=== PATIENT | female | born 1960 | race Caucasian/White ===

== ENCOUNTER 2016-12-12 18:11 | Inpatient (IN) | payer MEDICARE, MEDICAID ==
[2016-12-12 18:38] VITALS: RESP 20
[2016-12-12 20:55] LABS: BASO # 0.1 K/uL (0.0-0.2); BASO % 0.9 % (0.0-2.0); EOS # 0.1 K/uL (0.0-0.7); EOS % 1.3 % (0.0-4.0); HEMATOCRIT 33.9 % (34.0-47.0); LYMPH # 2.7 K/uL (1.0-4.3); LYMPH % 38.3 % (20.0-40.0); MEAN CELL VOLUME 92.3 fL (81.0-99.0); MEAN CORPUSCULAR HEMOGLOBIN 30.6 pg (27.0-31.0); MEAN CORPUSCULAR HGB CONC 33.1 g/dL (33.0-37.0); MEAN PLATELET VOLUME 9.4 fL (7.2-11.7); MONO # 0.7 K/uL (0.0-0.8); MONO % 9.7 % (0.0-10.0); RED CELL DISTRIBUTION WIDTH 14.6 % (11.5-14.5); WHITE BLOOD COUNT 6.9 K/uL (4.8-10.8)
[2016-12-12 21:04] LABS: CHLORIDE 98 mmol/L (98-107); SODIUM 136 mmol/L (132-148)
[2016-12-12 21:06] LABS: AST/SGOT 26 U/L (14-36); BILIRUBIN,TOTAL 0.6 mg/dL (0.2-1.3); CARBON DIOXIDE 28 mmol/L (22-30); GFR AFRICAN-AMERICAN > 60
[2016-12-12 21:07] LABS: ALB/GLOB RATIO 1.1 (1.0-2.1); ALKALINE PHOSPHATASE 55 U/L (38-126); ALT/SGPT 19 U/L (9-52); BLOOD UREA NITROGEN 13 mg/dL (7-17); CALCIUM 8.9 mg/dl (8.6-10.4); GLUCOSE,RANDOM 145 mg/dL (65-105); TOTAL PROTEIN 6.5 g/dL (6.3-8.3)
--- NOTE | 2016-12-12 21:07 | CT ---
EXAM: CT Head Without Intravenous Contrast CLINICAL HISTORY: 56 years old, female; Signs and symptoms; Weakness, extremity; Bilateral; Additional info: Frequent falls, weakness TECHNIQUE: Axial computed tomography images of the head/brain without intravenous contrast. This CT exam was performed using one or more of the following dose reduction techniques: automated exposure control, adjustment of the mA and/or kV according to patient size, and/or use of iterative reconstruction technique. COMPARISON: No relevant prior studies available. FINDINGS: Brain: [id number] atrophy. No intracranial hemorrhage. Small dural calcifications vs calcified meningiomas along anterior falx, LEFT middle cranial fossa. No definite edema. Ventricles: No hydrocephalus. Bones/joints: No acute fracture. Soft tissues: Unremarkable. Sinuses: No acute sinusitis. Mastoid air cells: No mastoid effusion. Orbits: Unremarkable as visualized. IMPRESSION: 1. No definite acute intracranial abnormality. Acute infarction may be CT occult within first 24 hours. If a focal deficit persists, consider followup CT or MRI for further evaluation. 2. Incidental/non-acute findings are described above.
[2016-12-12] MEDS ORDERED: Sodium Chloride 0.9% 1,000 ML IV STA (21:19)
[2016-12-12] MEDS ORDERED: Sodium Chloride 0.9% 1,000 ML ONE (21:37)
--- NOTE | 2016-12-12 21:50 | C.PDOC ---
History Of Present Illness Patient is a 56 year old female with a PMHx of schizophrenia, HTN, and DM who presents to the ER with son for a complaint of frequent falls for the past 6 months. Patient's son states she was seen at another hospital where she had a normal work up that was negative for abnormalities, however, patient's son states her symptoms continue and she has become weaker. Patient's son states a family friend spoke to Dr. Salvador Magallon who advised them to come to the ER and he will see them in ER. Patient is a poor historian, denies any other physical complaints. Time Seen by Provider: 12/12/16 19:57 Chief Complaint (Nursing): Medical Clearance History Per: Patient History/Exam Limitations: no limitations Onset/Duration Of Symptoms: Days (6 months), Intermittent Episodes Current Symptoms Are (Timing): Still Present Past Medical History Reviewed: Historical Data, Nursing Documentation, Vital Signs Vital Signs: Last Vital Signs Temp 97.3 F L 12/13/16 00:28 Pulse 107 H 12/13/16 00:28 Resp 20 12/13/16 00:28 BP 147/84 12/13/16 00:28 Pulse Ox 97 12/13/16 00:28 - Medical History PMH: Diabetes, Schizophrenia Surgical History: No Surg Hx Family History: States: Unknown Family Hx - Social History Hx Alcohol Use: No Hx Substance Use: No Review Of Systems Constitutional: Negative for: Fever, Chills Gastrointestinal: Negative for: Nausea, Vomiting, Diarrhea Neurological: Positive for: Weakness Physical Exam - Physical Exam Appears: Well, Non-toxic Skin: Normal Color, Warm, Dry Head: Atraumatic, Normacephalic Eye(s): bilateral: Normal Inspection, PERRL, EOMI Oral Mucosa: Moist Throat: Normal, Erythema Neck: Normal, Supple Chest: Symmetrical, No Tenderness Cardiovascular: Rhythm Regular, No Murmur Respiratory: Normal Breath Sounds, No Rales, No Rhonchi, No Wheezing Gastrointestinal/Abdominal: Soft, No Tenderness Back: Normal Inspection, No CVA Tenderness Extremity: Normal ROM, Other (Strength 4x ) Extremity: Bilateral: Atraumatic, Normal Color And Temperature Pulses: Left Radial: Normal, Right Radial: Normal, Left Dorsalis Pedis: Normal, Right Dorsalis Pedis: Normal Neurological/Psych: Oriented x3, Normal Speech, Normal Cognition, Normal Motor, Normal Sensation Gait: Unable To Assess (pt in stretcher) ED Course And Treatment - Laboratory Results Result Diagrams: 12/12/16 20:47 12/12/16 20:47 ECG: Interpreted By Me, Viewed By Me ECG Rhythm: Sinus Rhythm (Normal) ECG Interpretation: Normal Rate From EC O2 Sat by Pulse Oximetry: 98 (Room air) Pulse Ox Interpretation: Normal Progress Note: Urinalysis and EKG ordered. IV fluids administered. Discussed with Dr. Salvador Magallon, will admit to his service. Disposition - Disposition Disposition: HOSPITALIZED Disposition Time: 04:06 Condition: GOOD - Clinical Impression Clinical Impression: Weakness generalized - Scribe Statement The provider has reviewed the documentation as recorded by the Scribe Bhavesh Song All medical record entries made by the Toniaibe were at my direction and personally dictated by me. I have reviewed the chart and agree that the record accurately reflects my personal performance of the history, physical exam, medical decision making, and the department course for this patient. I have also personally directed, reviewed, and agree with the discharge instructions and disposition.
[2016-12-12 22:19] LABS: RBC URINE 1 /hpf (0-3); TRANSITIONAL EPITHIAL 1 /hpf (0-3); URINE BACTERIA OCC (<OCC); URINE BILIRUBIN NEGATIVE (NEGATIVE); URINE BLOOD NEGATIVE (NEGATIVE); URINE COLOR Yellow (YELLOW); URINE GLUCOSE (UA) 2+ mg/dL (Normal); URINE KETONE NEGATIVE (NEGATIVE); URINE LEUKOCYTE ESTERASE 2+ Leu/uL (Negative); URINE PROTEIN NEGATIVE (NEGATIVE); URINE UROBILINOGEN NORMAL mg/dL (0.2-1.0); WBC URINE 20 /hpf (0-5)
--- NOTE | 2016-12-13 09:50 | CP.PCM.HP ---
History of Present Illness - History of Present Illness History of Present Illness: 56 years old female patient with past medical history of schizophrenia diabetes , hypertension presented to the emergency department with her son complaining of frequent falls, weakness in the last 5 months. Patient had blood workup done at another hospital that was negative an event of abnormalities. Present on Admission - Present on Admission Any Indicators Present on Admission: No Past Patient History - Infectious Disease Hx of Infectious Diseases: None - Past Medical History & Family History Past Medical History?: Yes - Past Social History Smoking Status: Never Smoked - CARDIAC Hx Cardiac Disorders: No Hx Hypertension: No - PULMONARY Hx Tuberculosis: No - NEUROLOGICAL HX Cerebrovascular Accident: No Hx Seizures: No - RENAL Other/Comment: "kidney disease" - ENDOCRINE/METABOLIC Hx Diabetes Mellitus Type 2: Yes - HEMATOLOGICAL/ONCOLOGICAL Hx Cancer: No Hx Human Immunodeficiency Virus (HIV): No - MUSCULOSKELETAL/RHEUMATOLOGICAL Hx Falls: Yes (since August) Hx Unsteady Gait: Yes - GENITOURINARY/GYNECOLOGICAL Hx Sexually Transmitted Disorders: No Hx Urinary Tract Infection: Yes - PSYCHIATRIC Hx Schizophrenia: Yes Hx Substance Use: No - SURGICAL HISTORY Hx Surgeries: Yes Other/Comment: "Left leg" - ANESTHESIA Hx Anesthesia: No Hx Anesthesia Reactions: No Hx Malignant Hyperthermia: No Meds Home Medications: Home Medication List Medication Instructions Recorded Confirmed Type Acetaminophen [Tylenol 325mg tab] 650 mg PO STAT tab 12/16/16 Rx Bisacodyl [Dulcolax] 5 mg PO ONCE 12/16/16 Rx Ergocalciferol [Drisdol 50,000 1 cap PO Q7D cap 12/16/16 Rx Intl Units Cap] Gabapentin [Neurontin] 100 mg PO TID cap 12/16/16 Rx Insulin Human Regular [Novolin R] 0 unit SC ACHS unit 12/16/16 Rx Pantoprazole [Protonix EC Tab] 40 mg PO DAILY ect 12/16/16 Rx metFORMIN [glucOPHAGE] 500 mg PO BID tab 12/16/16 Rx Allergies/Adverse Reactions: Allergies Allergy/AdvReac Type Severity Reaction Status Date / Time No Known Allergies Allergy Verified 12/12/16 18:38 Physical Exam - Constitutional Appears: Well - Head Exam Head Exam: ATRAUMATIC, NORMAL INSPECTION, NORMOCEPHALIC - Eye Exam Eye Exam: EOMI, Normal appearance, PERRL Pupil Exam: NORMAL ACCOMODATION, PERRL - ENT Exam ENT Exam: Mucous Membranes Moist, Normal Exam - Neck Exam Neck exam: Positive for: Normal Inspection - Respiratory Exam Respiratory Exam: Decreased Breath Sounds - Cardiovascular Exam Cardiovascular Exam: REGULAR RHYTHM, +S1, +S2 - GI/Abdominal Exam GI & Abdominal Exam: Diminished Bowel Sounds, Soft - Rectal Exam Rectal Exam: Deferred Results - Vital Signs Recent Vital Signs: Last Vital Signs Temp 97.5 F L 12/13/16 07:32 Pulse 90 12/13/16 07:32 Resp 20 12/13/16 07:32 BP 138/83 12/13/16 07:32 Pulse Ox 98 12/13/16 07:32 - Labs Result Diagrams: 12/16/16 06:47 12/16/16 06:47 Labs: Laboratory Results - last 24 hr 12/12/16 12/13/16 22:12 06:42 POC Glucose (mg/dL) 175 H Urine Color Yellow Urine Clarity Clear Urine pH 8.0 Ur Specific Manson 1.009 Urine Protein Negative Urine Glucose (UA) 2+ H Urine Ketones Negative Urine Blood Negative Urine Nitrate Negative Urine Bilirubin Negative Urine Urobilinogen Normal Ur Leukocyte Esterase 2+ H Urine WBC (Auto) 20 H Urine RBC (Auto) 1 Ur Squamous Epith Cells 7 H Ur Transition Epith Cell 1 Urine Bacteria Occ H Assessment & Plan (1) Arrhythmia Status: Acute (2) Benign paroxysmal positional vertigo Status: Acute (3) Gait disturbance Status: Acute (4) Schizophrenia Status: Acute (5) Weakness generalized Status: Acute (6) Meningioma Status: Chronic - Assessment and Plan (Free Text) Plan: Labs and meds reviewed Continue Nexium as ordered Lovenox Accu-Chek Haloperidol Urine culture Physical therapy Speech therapy screening
[2016-12-13 12:14] LABS: CHLORIDE 101 mmol/L (98-107); POTASSIUM 3.9 mmol/L (3.6-5.2); SODIUM 139 mmol/L (132-148)
[2016-12-13 12:17] LABS: ALKALINE PHOSPHATASE 63 U/L (38-126); ALT/SGPT 20 U/L (9-52); AST/SGOT 17 U/L (14-36); BILIRUBIN,TOTAL 0.4 mg/dL (0.2-1.3); BLOOD UREA NITROGEN 7 mg/dL (7-17); CALCIUM 8.1 mg/dl (8.6-10.4); CARBON DIOXIDE 26 mmol/L (22-30); GFR AFRICAN-AMERICAN > 60; GLUCOSE,RANDOM 211 mg/dL (65-105); TOTAL PROTEIN 5.8 g/dL (6.3-8.3)
[2016-12-13 12:18] LABS: ALB/GLOB RATIO 1.1 (1.0-2.1)
[2016-12-13] MEDS ORDERED: CLOZAPINE 100 MG PO SCH (17:30)
[2016-12-13] MEDS: Enoxaparin 40 mg Syringe SC SCH (19:06)
[2016-12-13] MEDS: TRIFLUOPERAZINE 1 MG PO SCH (19:06)
[2016-12-13] MEDS: Divalproex 500 mg ER Tab PO SCH (19:06)
[2016-12-14] MEDS: Pantoprazole 40 mg EC Tab PO SCH (09:43)
[2016-12-14] MEDS: Divalproex 500 mg ER Tab PO SCH ×2 (09:43→18:02)
[2016-12-14] MEDS: TRIFLUOPERAZINE 1 MG PO SCH ×3 (09:44→18:02)
[2016-12-14] MEDS: Enoxaparin 40 mg Syringe SC SCH (09:45)
[2016-12-14] MEDS ORDERED: Bisacodyl 5mg EC Tab PO ONE (13:54)
--- NOTE | 2016-12-14 19:18 | CP.PCM.PN ---
Subjective - Date & Time of Evaluation Date of Evaluation: 12/14/16 Time of Evaluation: 09:50 - Subjective Subjective: Clinical same Objective - Vital Signs/Intake and Output Vital Signs (last 24 hours): Temp Pulse Resp BP Pulse Ox 97.6 F 104 H 20 128/80 98 12/14/16 15:11 12/14/16 15:11 12/14/16 15:11 12/14/16 15:11 12/14/16 15:11 - Medications Medications: Current Medications Divalproex Sodium (Depakote Er) 500 mg PO BID [facility] Last Admin: 12/14/16 18:02 Dose: 500 mg Enoxaparin Sodium (Lovenox) 40 mg SC DAILY [facility] Last Admin: 12/14/16 09:45 Dose: 40 mg Glimepiride (Amaryl) 1 mg PO DAILY [facility] Last Admin: 12/14/16 09:44 Dose: 1 mg Haloperidol (Haldol) 10 mg PO TID [facility] Last Admin: 12/14/16 18:01 Dose: 10 mg Home Med (Clozapine [Clozapine Odt]) 100 mg PO DAILY [facility] Influenza Virus Vaccine (Afluria) 45 mcg IM .ONCE ONE Stop: 12/15/16 14:01 Metformin HCl (Glucophage) 500 mg PO BID [facility] Last Admin: 12/14/16 18:01 Dose: 500 mg Pantoprazole Sodium (Protonix Ec Tab) 40 mg PO DAILY [facility] Last Admin: 12/14/16 09:43 Dose: 40 mg Paroxetine HCl (Paxil Cr) 12.5 mg PO DAILY [facility] Last Admin: 12/14/16 09:45 Dose: 12.5 mg Pneumococcal Polyvalent Vaccine (Pneumovax 23 Vaccine) 0.5 ml IM .ONCE ONE Stop: 12/15/16 14:01 Quetiapine Fumarate (Seroquel) 50 mg PO DAILY [facility] Last Admin: 12/14/16 09:44 Dose: 50 mg Trifluoperazine HCl (Stelazine) 2 mg PO TID [facility] Last Admin: 12/14/16 18:02 Dose: 2 mg - Labs Labs: 12/13/16 11:55 PT 11.4 SECONDS (9.7-12.2) 12/12/16 20:47 INR 1.0 12/12/16 20:47 APTT 30 SECONDS (21-34) 12/12/16 20:47 Assessment and Plan (1) Arrhythmia Status: Acute (2) Benign paroxysmal positional vertigo Status: Acute (3) Gait disturbance Status: Acute (4) Schizophrenia Status: Acute (5) Weakness generalized Status: Acute (6) Meningioma Status: Chronic - Assessment and Plan (Free Text) Plan: Continue same as ordered Awaiting culture results Physical therapy Protonix Neuro Consult
--- NOTE | 2016-12-15 10:25 | CP.PCM.PN ---
<Terri Jackson - Last Filed: 12/15/16 10:13> Subjective - Date & Time of Evaluation Date of Evaluation: 12/15/16 Time of Evaluation: 10:00 - Subjective Subjective: PGY2 Medicine Note - Dr. Omega Magallon's service: Patient seen and examined at bedside this AM. Patient was brought to hospital on Thursday by son who is currently at bedside. Patient has been on the same psych drugs for 2 years. For the past 6 months, she has been falling frequently. She says she does not feel dizzy. She says she loses her balance. She has fallen in the bathroom, going down stairs, walking with her son, etc. Patient's son says she does not lose consciousness or hit her head when she falls. She is confused frequently for the past 2 years but son says this is not particularly after the falls. Patient does not lose continence when she falls. Patient does not have a blank stare when she falls. Patient reports having difficulty standing up and needing to push herself up from arms of a chair or needing assistance from son. Patient reports urinary frequency. Patient denies vision changes, headache, chest pain, SOB, dysuria. Objective - Vital Signs/Intake and Output Vital Signs (last 24 hours): Temp Pulse Resp BP Pulse Ox 97.4 F L 87 20 143/87 97 12/15/16 07:00 12/15/16 07:00 12/15/16 07:00 12/15/16 07:00 12/15/16 07:00 - Medications Medications: Current Medications Divalproex Sodium (Depakote Er) 500 mg PO BID [facility] Last Admin: 12/14/16 18:02 Dose: 500 mg Enoxaparin Sodium (Lovenox) 40 mg SC DAILY [facility] Last Admin: 12/14/16 09:45 Dose: 40 mg Glimepiride (Amaryl) 1 mg PO DAILY [facility] Last Admin: 12/14/16 09:44 Dose: 1 mg Haloperidol (Haldol) 10 mg PO TID [facility] Last Admin: 12/14/16 18:01 Dose: 10 mg Home Med (Clozapine [Clozapine Odt]) 100 mg PO DAILY [facility] Influenza Virus Vaccine (Afluria) 45 mcg IM .ONCE ONE Stop: 12/15/16 14:01 Metformin HCl (Glucophage) 500 mg PO BID [facility] Last Admin: 12/14/16 18:01 Dose: 500 mg Pantoprazole Sodium (Protonix Ec Tab) 40 mg PO DAILY [facility] Last Admin: 12/14/16 09:43 Dose: 40 mg Paroxetine HCl (Paxil Cr) 12.5 mg PO DAILY [facility] Last Admin: 12/14/16 09:45 Dose: 12.5 mg Pneumococcal Polyvalent Vaccine (Pneumovax 23 Vaccine) 0.5 ml IM .ONCE ONE Stop: 12/15/16 14:01 Quetiapine Fumarate (Seroquel) 50 mg PO DAILY [facility] Last Admin: 12/14/16 09:44 Dose: 50 mg Trifluoperazine HCl (Stelazine) 2 mg PO TID [facility] Last Admin: 12/14/16 18:02 Dose: 2 mg - Labs Labs: 12/13/16 11:55 PT 11.4 SECONDS (9.7-12.2) 12/12/16 20:47 INR 1.0 12/12/16 20:47 APTT 30 SECONDS (21-34) 12/12/16 20:47 - Constitutional Appears: Non-toxic, No Acute Distress - Head Exam Head Exam: NORMAL INSPECTION - Eye Exam Eye Exam: EOMI - ENT Exam ENT Exam: Mucous Membranes Moist - Respiratory Exam Respiratory Exam: Clear to Ausculation Bilateral, NORMAL BREATHING PATTERN. absent: Rales, Rhonchi, Wheezes - Cardiovascular Exam Cardiovascular Exam: REGULAR RHYTHM, +S1, +S2. absent: Gallop, Rubs, Murmur - GI/Abdominal Exam GI & Abdominal Exam: Soft, Normal Bowel Sounds. absent: Tenderness - Extremities Exam Extremities Exam: absent: Pedal Edema - Neurological Exam Neurological Exam: Alert, Awake Neuro motor strength exam: Left Upper Extremity: 5, Right Upper Extremity: 5, Left Lower Extremity: 4, Right Lower Extremity: 5 - Psychiatric Exam Psychiatric exam: Flat Affect, Normal Mood - Skin Skin Exam: Normal Color, Warm Assessment and Plan - Assessment and Plan (Free Text) Assessment: Frequent falls Head CT negative EKG NSR at 91bpm MRI August 2016 - normal Head CT August 2016 - possible meningioma Vitamin D 15.6 in August 2016 TSH, B12, Folate normal in August 2016 F/U MRI, ECHO, EEG, carotid US Neuro consult - Dr. Jernigan - f/u recs LLE weakness F/U MRI Neuro consult - Dr. Jernigan Schizophrenia Psych consult - Dr. Jeffries - f/u recs Depakote 500mg PO BID Haldol 10mg PO TID Paxil 12.5mg PO daily Seroquel 50mg PO daily Stelazine 2mg PO TID DM Metformin 500mg PO BID Glimepiride 1mg PO daily RISS Accuchecks Prophylaxis Lovenox 40mg SC daily Protonix 40mg PO daily <MagallonCalvin S - Last Filed: 03/17/17 19:50> Objective - Vital Signs/Intake and Output Vital Signs (last 24 hours): Temp Pulse Resp BP Pulse Ox 97.2 F L 76 20 117/85 97 12/16/16 08:06 12/16/16 08:06 12/16/16 08:06 12/16/16 08:06 12/16/16 08:06 - Labs Labs: 12/16/16 06:47 12/16/16 06:47 PT 11.4 SECONDS (9.7-12.2) 12/12/16 20:47 INR 1.0 12/12/16 20:47 APTT 30 SECONDS (21-34) 12/12/16 20:47 Assessment and Plan (1) Arrhythmia Status: Acute (2) Benign paroxysmal positional vertigo Status: Acute (3) Gait disturbance Status: Acute (4) Schizophrenia Status: Acute (5) Weakness generalized Status: Acute (6) Meningioma Status: Chronic Attending/Attestation - Attestation I have personally seen and examined this patient.: Yes I have fully participated in the care of the patient.: Yes I have reviewed all pertinent clinical information, including history, physical exam and plan: Yes Notes (Text): Case seen and discussed with the staff and resident patient is been on site drug case seen and discussed with the son continue same issues addressed with the frequent falls to the son
[2016-12-15] MEDS: Enoxaparin 40 mg Syringe SC SCH (10:48)
[2016-12-15] MEDS: TRIFLUOPERAZINE 1 MG PO SCH ×3 (10:48→18:29)
[2016-12-15] MEDS: Pantoprazole 40 mg EC Tab PO SCH (10:49)
[2016-12-15] MEDS: Divalproex 500 mg ER Tab PO SCH ×2 (10:49→18:29)
[2016-12-15] MEDS: (Novolin R) Insulin Human Regular 100 units/ml vial SC SCH ×3 (12:21→22:02)
[2016-12-15 12:57] LABS: BASO % 0.4 % (0.0-2.0); EOS # 0.1 K/uL (0.0-0.7); EOS % 1.9 % (0.0-4.0); HEMATOCRIT 33.8 % (34.0-47.0); LYMPH # 3.2 K/uL (1.0-4.3); LYMPH % 46.8 % (20.0-40.0); MEAN CELL VOLUME 92.2 fL (81.0-99.0); MEAN CORPUSCULAR HEMOGLOBIN 30.6 pg (27.0-31.0); MEAN CORPUSCULAR HGB CONC 33.2 g/dL (33.0-37.0); MONO # 0.6 K/uL (0.0-0.8); MONO % 8.5 % (0.0-10.0); RED CELL DISTRIBUTION WIDTH 14.6 % (11.5-14.5); WHITE BLOOD COUNT 6.9 K/uL (4.8-10.8)
[2016-12-15 13:16] LABS: CHLORIDE 100 mmol/L (98-107); POTASSIUM 3.7 mmol/L (3.6-5.2); SODIUM 138 mmol/L (132-148)
[2016-12-15 13:18] LABS: AST/SGOT 18 U/L (14-36); BILIRUBIN,TOTAL 0.4 mg/dL (0.2-1.3); CARBON DIOXIDE 26 mmol/L (22-30); GFR AFRICAN-AMERICAN > 60
[2016-12-15 13:19] LABS: ALB/GLOB RATIO 1.1 (1.0-2.1); ALKALINE PHOSPHATASE 70 U/L (38-126); ALT/SGPT 16 U/L (9-52); BLOOD UREA NITROGEN 7 mg/dL (7-17); CALCIUM 8.5 mg/dl (8.6-10.4); GLUCOSE,RANDOM 143 mg/dL (65-105); TOTAL PROTEIN 6.1 g/dL (6.3-8.3)
[2016-12-15] MEDS ORDERED: Pneumococcal 23-Valent Vaccine IM ONE (14:00)
[2016-12-15] MEDS ORDERED: Influenza Virus Vaccine 45 mcg/0.5 ml Syr IM ONE (14:00)
[2016-12-15] MEDS ORDERED: Ergocalciferol 50,000 Intl Units Cap PO SCH (14:15)
[2016-12-15 14:19] LABS: FOLATE 15.8 ng/mL
--- NOTE | 2016-12-15 14:23 | MRI ---
PROCEDURE: MRI BRAIN WITHOUT CONTRAST HISTORY: frequent falls COMPARISON: None. TECHNIQUE: Multiplanar, multisequence MR images of the brain were obtained without intravenous contrast enhancement. FINDINGS: HEMORRHAGE: None DWI: No evidence of an acute or early subacute infarction. BRAIN PARENCHYMA: No mass effect or edema. [id number] atrophy is noted. VENTRICLES: Unremarkable. No hydrocephalus. CRANIUM: Unremarkable. ORBITS: Grossly unremarkable. PARANASAL SINUSES/MASTOIDS: Mild mucosal thickening seen in the sinuses. VASCULAR SYSTEM: Skull base flow voids intact. OTHER FINDINGS: None. IMPRESSION: No evidence of acute pathology. No evidence of mass lesion mass effect or midline shift. [id number] atrophy .
--- NOTE | 2016-12-15 15:31 | PCM.PSYCH ---
Initial Psychiatric Evaluation - Initial Psychiatric Evaluation Chief Complaint (in patient's own words): 'I am falling too much and I am hearing voices.' History of Present Illness and Precipitating Events: Psych Consult for 56 yo F patient with PMH including schizophrenia and diabetes was interviewed with help from her son. Patient chief complaint is increasing rate of falling and intermittently "hearing many voices" that are not there. Patient currently hears voices that tell her what she is and is not able to do, and sometimes she does not understand the voices. Denies current visual hallucinations, however has experienced them in the past. Denies suicidal and homicidal ideation,feeling followed or having thoughts read by others. Positive appetite. Patient complains of difficulty falling asleep, polyuria, constipation, and shaking hands and feet. Has not had changes in medication, side effects experienced include drowsiness. Denies marijuana, cocaine, heroin , alcohol, tobacco use. Denies nausea, vomiting, fever, abdominal pain, body aches, diarrhea, sweating. Past psychiatric history includes inpatient rehab for 6 months - 2 years ago in [facility], previous admissions ranging from 5-10 day hospital stays, and previous ECT treatments when she was not responding to medications. Current Medications: Active Medications Generic Name Dose Route Start Last Admin Trade Name Freq PRN Reason Stop Dose Admin Divalproex Sodium 500 mg 12/13/16 18:00 12/15/16 10:49 Depakote Er PO 500 mg BID [facility] Administration Enoxaparin Sodium 40 mg 12/13/16 17:45 12/15/16 10:48 Lovenox SC 40 mg DAILY [facility] Administration Ergocalciferol 1 cap 12/15/16 14:15 Drisdol 50,000 Intl Units Cap PO Q7D [facility]USANNE Glimepiride 1 mg 12/13/16 17:30 12/15/16 10:49 Amaryl PO 1 mg DAILY [facility] Administration Haloperidol 10 mg 12/13/16 18:00 12/15/16 14:36 Haldol PO 10 mg TID [facility]NE Administration Home Med 100 mg 12/13/16 17:30 Clozapine [Clozapine Odt] PO DAILY [facility] Insulin Human Regular 0 unit 12/15/16 11:30 12/15/16 12:21 Novolin R SC Not Given ACHS [facility] Protocol Metformin HCl 500 mg 12/13/16 18:00 12/15/16 10:48 Glucophage PO 500 mg BID [facility] Administration Pantoprazole Sodium 40 mg 12/14/16 10:00 12/15/16 10:49 Protonix Ec Tab PO 40 mg DAILY [facility] Administration Paroxetine HCl 12.5 mg 12/14/16 10:00 12/15/16 10:49 Paxil Cr PO 12.5 mg DAILY [facility] Administration Quetiapine Fumarate 50 mg 12/13/16 17:30 12/15/16 10:49 Seroquel PO 50 mg DAILY [facility] Administration Trifluoperazine HCl 2 mg 12/13/16 18:00 12/15/16 14:36 Stelazine PO 2 mg TID [facility]NE Administration Past Psychiatric History - Past Psychiatric History Previous Treatment History: Inpatient Prior Professional Help: In patient in [place] Prior Psychiatric Treatment: Inpatient At [facility]: in [facility] Explanation of prior treatment: Past psychiatric history includes inpatient rehab for 6 months - 2 years ago in [facility], previous admissions ranging from 5-10 day hospital stays, and previous ECT treatments when she was not responding to medications. History of ETOH/Drug Use: Denies marijuana, cocaine, heroin, alcohol, tobacco use. History of Family Illness: Denies. Pertinent Medical Hx (Current Medical&Sleep Prob, Allergies): Allergies Allergy/AdvReac Type Severity Reaction Status Date / Time No Known Allergies Allergy Verified 12/12/16 18:38 Clozapine [Clozapine Odt] 100 mg PO DAILY 12/12/16 Divalproex Sodium [Divalproex Sodium ER] 500 mg PO BID 12/12/16 Haloperidol [Haldol] 10 mg PO TID 12/12/16 PARoxetine CR [Paxil CR] 1 tab PO DAILY 12/12/16 Quetiapine Fumarate [Seroquel] 50 mg PO DAILY 12/12/16 Trifluoperazine [Stelazine] 2 mg PO TID 12/12/16 Glimepiride 1 mg PO DAILY 12/13/16 metFORMIN [glucOPHAGE] 500 mg PO DAILY 12/13/16 Allergies: Denies PMH: Diabetes Social History: , lives in [place] with her son. Unemployed. Denies legal issues. Review of Systems - Review of Systems All systems: reviewed and no additional remarkable complaints except - Psychiatric Psychiatric: Auditory Hallucinations, Paranoia Mental Status Examination - Personal Presentation Personal Presentation: Looks stated age - Affect Affect: Constricted - Motor Activity Motor Activity: Calm - Reliability in Providing Information Reliability in Providing Information: Good - Speech Speech: Organized - Mood Mood: Anxious - Formal Thought Process Formal Thought Process: Hallucinations - Hallucinations/Delusions Hallucinations: Auditory - Obsessions/Compulsions Obsessions: No Compulsions: No - Cognitive Functions Orientation: Person, Place, Situation, Time Sensorium: Alert Attention/Concentration: Attentive Abstract Thinking: [place] Estimate of Intelligence: Below average Judgement: Imparied, as evidence by: Poor judgement, Intact, as evidence by: Good judgement - Risk Risk: Diminished functioning - Strength & Assets Inventory Strength & Assets Inventory: Family support, Cooperative DSM 5 DX - DSM 5 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
--- NOTE | 2016-12-15 18:32 | CP.PCM.PN ---
Subjective - Date & Time of Evaluation Date of Evaluation: 12/15/16 Time of Evaluation: 09:20 - Subjective Subjective: clinically same Objective - Vital Signs/Intake and Output Vital Signs (last 24 hours): Temp Pulse Resp BP Pulse Ox 97.5 F L 93 H 20 141/85 100 12/15/16 15:20 12/15/16 15:20 12/15/16 15:20 12/15/16 15:20 12/15/16 15:20 - Medications Medications: Current Medications Divalproex Sodium (Depakote Er) 500 mg PO BID [facility] Last Admin: 12/15/16 18:29 Dose: 500 mg Enoxaparin Sodium (Lovenox) 40 mg SC DAILY [facility] Last Admin: 12/15/16 10:48 Dose: 40 mg Ergocalciferol (Drisdol 50,000 Intl Units Cap) 1 cap PO Q7D [facility] Last Admin: 12/15/16 15:41 Dose: 1 cap Glimepiride (Amaryl) 1 mg PO DAILY [facility] Last Admin: 12/15/16 10:49 Dose: 1 mg Haloperidol (Haldol) 10 mg PO TID [facility] Last Admin: 12/15/16 18:29 Dose: 10 mg Home Med (Clozapine [Clozapine Odt]) 100 mg PO DAILY [facility] Insulin Human Regular (Novolin R) 0 unit SC [facility] PRN Reason: Protocol Last Admin: 12/15/16 18:28 Dose: 4 unit Metformin HCl (Glucophage) 500 mg PO BID [facility] Last Admin: 12/15/16 18:29 Dose: 500 mg Pantoprazole Sodium (Protonix Ec Tab) 40 mg PO DAILY [facility] Last Admin: 12/15/16 10:49 Dose: 40 mg Paroxetine HCl (Paxil Cr) 12.5 mg PO DAILY [facility] Last Admin: 12/15/16 10:49 Dose: 12.5 mg Quetiapine Fumarate (Seroquel) 50 mg PO DAILY [facility] Last Admin: 12/15/16 10:49 Dose: 50 mg Trifluoperazine HCl (Stelazine) 2 mg PO TID [facility] Last Admin: 12/15/16 18:29 Dose: 2 mg - Labs Labs: 12/15/16 12:40 12/15/16 12:40 PT 11.4 SECONDS (9.7-12.2) 12/12/16 20:47 INR 1.0 12/12/16 20:47 APTT 30 SECONDS (21-34) 12/12/16 20:47 - Constitutional Appears: Well - Head Exam Head Exam: ATRAUMATIC, NORMAL INSPECTION, NORMOCEPHALIC - Eye Exam Eye Exam: EOMI, Normal appearance, PERRL Pupil Exam: NORMAL ACCOMODATION, PERRL - ENT Exam ENT Exam: Mucous Membranes Moist, Normal Exam - Neck Exam Neck Exam: Full ROM, Normal Inspection. absent: Lymphadenopathy - Respiratory Exam Respiratory Exam: Decreased Breath Sounds - Cardiovascular Exam Cardiovascular Exam: REGULAR RHYTHM, +S1, +S2 - GI/Abdominal Exam GI & Abdominal Exam: Soft, Diminished Bowel Sounds - Rectal Exam Rectal Exam: Deferred Assessment and Plan (1) Arrhythmia Status: Acute (2) Benign paroxysmal positional vertigo Status: Acute (3) Gait disturbance Status: Acute (4) Schizophrenia Status: Acute (5) Weakness generalized Status: Acute (6) Meningioma Status: Chronic - Assessment and Plan (Free Text) Plan: Patient feeling better Psychiatric consult Physical therapy Neuro consult Continue meds as ordered DVT prophylaxis
--- NOTE | 2016-12-16 01:50 | CP.PCM.CON ---
History of Present Illness - History of Present Illness History of Present Illness: Patient is a 56 year old female with a PMHx of schizophrenia, HTN, and DM who presents to the ER with son for a complaint of frequent falls for the past 6 months. Patient's son states she was seen at another hospital where she had a normal work up that was negative for abnormalities, however, patient's son states her symptoms continue and she has become weaker. Patient's son states a family friend spoke to Dr. Salvador Magallon who advised them to come to the ER and he will see them in ER. Patient is a poor historian, denies any other physical complaints. H/O Gait Disturbance and H/O Meningioma Time Seen by Provider: 12/12/16 19:57 Chief Complaint (Nursing): Medical Clearance History Per: Patient History/Exam Limitations: no limitations Onset/Duration Of Symptoms: Days (6 months), Intermittent Episodes Current Symptoms Are (Timing): Still Present Past Medical History Reviewed: Historical Data, Nursing Documentation, Vital Signs Vital Signs: Last Vital Signs Temp 97.3 F L 12/13/16 00:28 Pulse 107 H 12/13/16 00:28 Resp 20 12/13/16 00:28 BP 147/84 12/13/16 00:28 Pulse Ox 97 12/13/16 00:28 - Medical History PMH: Diabetes, Schizophrenia Surgical History: No Surg Hx Family History: States: Unknown Family Hx - Social History Hx Alcohol Use: No Hx Substance Use: No Review Of Systems Constitutional: Negative for: Fever, Chills Gastrointestinal: Negative for: Nausea, Vomiting, Diarrhea Neurological: Positive for: Weakness Physical Exam - Physical Exam Appears: Well, Non-toxic Skin: Normal Color, Warm, Dry Head: Atraumatic, Normacephalic Eye(s): bilateral: Normal Inspection, PERRL, EOMI Oral Mucosa: Moist Throat: Normal, Erythema Neck: Normal, Supple Chest: Symmetrical, No Tenderness Cardiovascular: Rhythm Regular, No Murmur Respiratory: Normal Breath Sounds, No Rales, No Rhonchi, No Wheezing Gastrointestinal/Abdominal: Soft, No Tenderness Back: Normal Inspection, No CVA Tenderness Extremity: Normal ROM, Other (Strength 4x ) Extremity: Bilateral: Atraumatic, Normal Color And Temperature Pulses: Left Radial: Normal, Right Radial: Normal, Left Dorsalis Pedis: Normal, Right Dorsalis Pedis: Normal Neurological/Psych: Oriented x3, Normal Speech, Normal Cognition, Normal Motor, Normal Sensation Gait: Unable To Assess (pt in stretcher) ECG Rhythm: Sinus Rhythm (Normal) ECG Interpretation: Normal Rate From EC O2 Sat by Pulse Oximetry: 98 (Room air) Pulse Ox Interpretation: Normal Progress Note: Urinalysis and EKG ordered. IV fluids administered. Discussed with Dr. Salvador Magallon, will admit to his service. IMPRESSION of MRI Brain: No evidence of acute pathology. No evidence of mass lesion mass effect or midline shift. [id number] atrophy . Disposition - Disposition Disposition: HOSPITALIZED Disposition Time: 04:06 Condition: GOOD - Clinical Impression Clinical Impression: Weakness generalized Past Patient History - Infectious Disease Hx of Infectious Diseases: None - Past Medical History & Family History Past Medical History?: Yes - Past Social History Smoking Status: Never Smoked - CARDIAC Hx Cardiac Disorders: No Hx Hypertension: No - PULMONARY Hx Tuberculosis: No - NEUROLOGICAL HX Cerebrovascular Accident: No Hx Seizures: No - RENAL Other/Comment: "kidney disease" - ENDOCRINE/METABOLIC Hx Diabetes Mellitus Type 2: Yes - HEMATOLOGICAL/ONCOLOGICAL Hx Cancer: No Hx Human Immunodeficiency Virus (HIV): No - MUSCULOSKELETAL/RHEUMATOLOGICAL Hx Falls: Yes (since August) Hx Unsteady Gait: Yes - GENITOURINARY/GYNECOLOGICAL Hx Sexually Transmitted Disorders: No Hx Urinary Tract Infection: Yes - PSYCHIATRIC Hx Schizophrenia: Yes Hx Substance Use: No - SURGICAL HISTORY Hx Surgeries: Yes Other/Comment: "Left leg" - ANESTHESIA Hx Anesthesia: No Hx Anesthesia Reactions: No Hx Malignant Hyperthermia: No Meds Allergies/Adverse Reactions: Allergies Allergy/AdvReac Type Severity Reaction Status Date / Time No Known Allergies Allergy Verified 12/12/16 18:38 - Medications Medications: Current Medications Divalproex Sodium (Depakote Er) 500 mg PO BID [facility] Last Admin: 12/15/16 18:29 Dose: 500 mg Enoxaparin Sodium (Lovenox) 40 mg SC DAILY [facility] Last Admin: 12/15/16 10:48 Dose: 40 mg Ergocalciferol (Drisdol 50,000 Intl Units Cap) 1 cap PO Q7D [facility] Last Admin: 12/15/16 15:41 Dose: 1 cap Glimepiride (Amaryl) 1 mg PO DAILY [facility] Last Admin: 12/15/16 10:49 Dose: 1 mg Haloperidol (Haldol) 10 mg PO TID [facility] Last Admin: 12/15/16 18:29 Dose: 10 mg Home Med (Clozapine [Clozapine Odt]) 100 mg PO DAILY [facility] Insulin Human Regular (Novolin R) 0 unit SC [facility] PRN Reason: Protocol Last Admin: 12/15/16 22:02 Dose: Not Given Metformin HCl (Glucophage) 500 mg PO BID [facility] Last Admin: 12/15/16 18:29 Dose: 500 mg Pantoprazole Sodium (Protonix Ec Tab) 40 mg PO DAILY [facility] Last Admin: 12/15/16 10:49 Dose: 40 mg Paroxetine HCl (Paxil Cr) 12.5 mg PO DAILY [facility] Last Admin: 12/15/16 10:49 Dose: 12.5 mg Quetiapine Fumarate (Seroquel) 50 mg PO DAILY [facility] Last Admin: 12/15/16 10:49 Dose: 50 mg Trifluoperazine HCl (Stelazine) 2 mg PO TID [facility] Last Admin: 12/15/16 18:29 Dose: 2 mg Physical Exam - Neurological Exam Additional comments: Mental Status: Awake, alert, oriented X 3, Speaks Maya and Judrati her Romanian is not Fluent but we can understand her easily Cranial nerves II to XII no deficits Motor: Normal Tone, Power, muscle Bulk DTR 0/4 Toes are down going by plantar stimulation Sensory: Glove and stoke Pattern of reduced sensation due to DM Cerebellar: Normal FNT Stature and Gait: Not Tested. Results - Vital Signs Recent Vital Signs: Last Vital Signs Temp 97.7 F 12/16/16 00:42 Pulse 85 12/16/16 00:42 Resp 20 12/16/16 00:42 BP 124/66 12/16/16 00:42 Pulse Ox 95 12/16/16 00:42 - Labs Result Diagrams: 12/16/16 06:47 12/16/16 06:47 Labs: Laboratory Results - last 24 hr 12/15/16 12/15/16 12/15/16 06:28 11:36 12:40 WBC 6.9 RBC 3.67 L Hgb 11.2 Hct 33.8 L MCV 92.2 MCH 30.6 MCHC 33.2 RDW 14.6 H Plt Count 171 MPV 9.0 Neut % (Auto) 42.4 L Lymph % (Auto) 46.8 H [place] % (Auto) 8.5 Eos % (Auto) 1.9 Baso % (Auto) 0.4 Neut # 2.9 Lymph # 3.2 [place] # 0.6 Eos # 0.1 Baso # 0.0 Sodium Potassium Chloride Carbon Dioxide Anion Gap BUN Creatinine Est GFR ( Amer) Est GFR (Non-Af Amer) POC Glucose (mg/dL) 121 H 145 H Random Glucose Calcium Total Bilirubin AST ALT Alkaline Phosphatase Total Protein Albumin Globulin Albumin/Globulin Ratio Vitamin B12 25-OH Vitamin D Total Folate TSH 3rd Generation 12/15/16 12/15/16 12/15/16 12:40 12:40 16:15 WBC RBC Hgb Hct MCV MCH MCHC RDW Plt Count MPV Neut % (Auto) Lymph % (Auto) [place] % (Auto) Eos % (Auto) Baso % (Auto) Neut # Lymph # [place] # Eos # Baso # Sodium 138 Potassium 3.7 Chloride 100 Carbon Dioxide 26 Anion Gap 16 BUN 7 Creatinine 0.6 L Est GFR ( Amer) > 60 Est GFR (Non-Af Amer) > 60 POC Glucose (mg/dL) 175 H Random Glucose 143 H Calcium 8.5 L Total Bilirubin 0.4 AST 18 ALT 16 Alkaline Phosphatase 70 Total Protein 6.1 L Albumin 3.2 L Globulin 2.8 Albumin/Globulin Ratio 1.1 Vitamin B12 828 25-OH Vitamin D Total 16.6 L Folate 15.8 TSH 3rd Generation 3.60 12/15/16 21:38 WBC RBC Hgb Hct MCV MCH MCHC RDW Plt Count MPV Neut % (Auto) Lymph % (Auto) [place] % (Auto) Eos % (Auto) Baso % (Auto) Neut # Lymph # [place] # Eos # Baso # Sodium Potassium Chloride Carbon Dioxide Anion Gap BUN Creatinine Est GFR ( Amer) Est GFR (Non-Af Amer) POC Glucose (mg/dL) 188 H Random Glucose Calcium Total Bilirubin AST ALT Alkaline Phosphatase Total Protein Albumin Globulin Albumin/Globulin Ratio Vitamin B12 25-OH Vitamin D Total Folate TSH 3rd Generation Assessment & Plan (1) Weakness generalized Assessment and Plan: Side effects of the medicine for her Schizophrenia and the medicine for DM, each might be a cause. Status: Acute (2) Gait disturbance Assessment and Plan: related to DM Status: Acute (3) Meningioma Assessment and Plan: R/O Seizures, R/O Encephalopathy Status: Chronic (4) Schizophrenia Assessment and Plan: Needs Psychiatry F/U Status: Acute (5) Arrhythmia Assessment and Plan: R/O Cardiac causes of Vertigo as she is complaining of vertigo on and off Status: Acute (6) Benign paroxysmal positional vertigo Assessment and Plan: Recurrent Vertigo might be related to BPPV Physical Therapy can help that by performing Eply Maneuver. BPPV can cause recurrent falling Status: Acute
--- NOTE | 2016-12-16 03:27 | CARD ---
APPROVED REPORT EXAM: Two-dimensional and M-mode echocardiogram with Doppler and color Doppler. Other Information Quality : GoodRhythm : INDICATION FREQUENT FALL RISK FACTORS Hyperlipidemia M-Mode DIMENSIONS RVDd2.77 (2.1-3.2cm)Left Atrium (MM)3.42 (2.5-4.0cm) IVSd0.91 (0.7-1.1cm)Aortic Root2.96 (2.2-3.7cm) LVDd4.49 (4.0-5.6cm)Aortic Cusp Exc.1.98 (1.5-2.0cm) PWd0.72 (0.7-1.1cm)FS (%) 42 % LVDs2.60 (2.0-3.8cm)LVEF (%)73 (>50%) Mitral Valve MV E Oqmgoqxt33.3cm/sMV A Dnudnvpo48.5cm/sE/A ratio0.9 TDI E/Lateral E'0.0E/Medial E'0.0 Tricuspid Valve TR Peak [id number]/sTR Peak Gr.[id number] LEFT VENTRICLE The left ventricle is normal size. There is normal left ventricular wall thickness. Left ventricle systolic function is normal. The Ejection Fraction is >70%. There is normal LV segmental wall motion. Tissue Doppler imaging reveals abnormal left ventricular diastolic dysfunction. RIGHT VENTRICLE The right ventricle is normal size. There is normal right ventricular wall thickness. The right ventricular systolic function is normal. ATRIA The left atrium size is normal. The right atrium size is normal. The interatrial septum is intact with no evidence for an atrial septal defect. AORTIC VALVE The aortic valve is normal in structure. No aortic regurgitation is present. There is no aortic valvular stenosis. There is no aortic valvular vegetation. MITRAL VALVE The mitral valve is normal in structure. There is no evidence of mitral valve prolapse. There is no mitral valve stenosis. Mitral regurgitation is mild. TRICUSPID VALVE The tricuspid valve is normal in structure. There is mild tricuspid regurgitation. Right ventricular systolic pressure is estimated at less than 30 mmHg. There is no pulmonary hypertension. PULMONIC VALVE The pulmonic valve is not well visualized. There is no pulmonic valvular regurgitation. GREAT VESSELS The aortic root is normal in size. PERICARDIAL EFFUSION There is no significant pericardial effusion. <Conclusion> Left ventricle systolic function is normal. The Ejection Fraction is >70%. Diastolic dysfunction. No aortic regurgitation is present. Mitral regurgitation is mild. There is mild tricuspid regurgitation. There is no pulmonary hypertension. There is no pulmonic valvular regurgitation.
[2016-12-16 07:08] LABS: BASO % 0.6 % (0.0-2.0); EOS # 0.2 K/uL (0.0-0.7); EOS % 2.1 % (0.0-4.0); HEMATOCRIT 32.8 % (34.0-47.0); LYMPH # 3.9 K/uL (1.0-4.3); LYMPH % 49.4 % (20.0-40.0); MEAN CELL VOLUME 91.4 fL (81.0-99.0); MEAN CORPUSCULAR HEMOGLOBIN 30.8 pg (27.0-31.0); MEAN CORPUSCULAR HGB CONC 33.7 g/dL (33.0-37.0); MEAN PLATELET VOLUME 8.9 fL (7.2-11.7); MONO # 0.7 K/uL (0.0-0.8); MONO % 8.4 % (0.0-10.0); NRBC % 0.2 % (0.0-2.0); RED CELL DISTRIBUTION WIDTH 14.6 % (11.5-14.5); WHITE BLOOD COUNT 7.9 K/uL (4.8-10.8)
[2016-12-16 07:29] LABS: CHLORIDE 98 mmol/L (98-107)
[2016-12-16 07:30] LABS: SODIUM 133 mmol/L (132-148)
[2016-12-16 07:32] LABS: ALB/GLOB RATIO 1.1 (1.0-2.1); ALKALINE PHOSPHATASE 65 U/L (38-126); AST/SGOT 17 U/L (14-36); BILIRUBIN,TOTAL 0.5 mg/dL (0.2-1.3); BLOOD UREA NITROGEN 9 mg/dL (7-17); CARBON DIOXIDE 24 mmol/L (22-30); GFR AFRICAN-AMERICAN > 60
[2016-12-16 07:33] LABS: ALT/SGPT 19 U/L (9-52); CALCIUM 8.2 mg/dl (8.6-10.4); GLUCOSE,RANDOM 114 mg/dL (65-105)
[2016-12-16 07:37] LABS: CHOLESTEROL 120 mg/dL (0-199)
[2016-12-16] MEDS: (Novolin R) Insulin Human Regular 100 units/ml vial SC SCH ×2 (08:00→13:31)
[2016-12-16 08:08] VITALS: BP 117/85; PULSE 76; TEMP 97.2; O2SAT 97
--- NOTE | 2016-12-16 11:16 | CP.PCM.PN ---
Subjective - Date & Time of Evaluation Date of Evaluation: 12/16/16 Time of Evaluation: 09:05 - Subjective Subjective: PGY2 Medicine Note - Dr. Omega Magallon's service: Patient seen and examined this AM. Patient has no complaints. Patient says she walked around with PT yesterday and felt good. Objective - Vital Signs/Intake and Output Vital Signs (last 24 hours): Temp Pulse Resp BP Pulse Ox 97.2 F L 76 20 117/85 97 12/16/16 08:06 12/16/16 08:06 12/16/16 08:06 12/16/16 08:06 12/16/16 08:06 Intake and Output: 12/16/16 12/16/16 06:59 18:59 Intake Total 100 Balance 100 - Medications Medications: Current Medications Divalproex Sodium (Depakote Er) 500 mg PO BID [facility] Last Admin: 12/15/16 18:29 Dose: 500 mg Enoxaparin Sodium (Lovenox) 40 mg SC DAILY [facility] Last Admin: 12/15/16 10:48 Dose: 40 mg Ergocalciferol (Drisdol 50,000 Intl Units Cap) 1 cap PO Q7D [facility] Last Admin: 12/15/16 15:41 Dose: 1 cap Gabapentin (Neurontin) 100 mg PO TID [facility] Glimepiride (Amaryl) 1 mg PO DAILY [facility] Last Admin: 12/15/16 10:49 Dose: 1 mg Haloperidol (Haldol) 10 mg PO TID [facility] Last Admin: 12/15/16 18:29 Dose: 10 mg Home Med (Clozapine [Clozapine Odt]) 100 mg PO DAILY [facility] Insulin Human Regular (Novolin R) 0 unit SC [facility] PRN Reason: Protocol Last Admin: 12/16/16 08:00 Dose: Not Given Metformin HCl (Glucophage) 500 mg PO BID [facility] Last Admin: 12/15/16 18:29 Dose: 500 mg Pantoprazole Sodium (Protonix Ec Tab) 40 mg PO DAILY [facility] Last Admin: 12/15/16 10:49 Dose: 40 mg Paroxetine HCl (Paxil Cr) 12.5 mg PO DAILY [facility] Last Admin: 12/15/16 10:49 Dose: 12.5 mg Quetiapine Fumarate (Seroquel) 50 mg PO DAILY [facility] Last Admin: 12/15/16 10:49 Dose: 50 mg Trifluoperazine HCl (Stelazine) 2 mg PO TID [facility] Last Admin: 12/15/16 18:29 Dose: 2 mg - Labs Labs: 12/16/16 06:47 12/16/16 06:47 PT 11.4 SECONDS (9.7-12.2) 12/12/16 20:47 INR 1.0 12/12/16 20:47 APTT 30 SECONDS (21-34) 12/12/16 20:47 - Constitutional Appears: Non-toxic, No Acute Distress - Head Exam Head Exam: NORMAL INSPECTION - Eye Exam Eye Exam: EOMI - ENT Exam ENT Exam: Mucous Membranes Moist - Respiratory Exam Respiratory Exam: Clear to Ausculation Bilateral, NORMAL BREATHING PATTERN. absent: Rhonchi, Wheezes - Cardiovascular Exam Cardiovascular Exam: REGULAR RHYTHM, +S1, +S2 - GI/Abdominal Exam GI & Abdominal Exam: Soft, Normal Bowel Sounds. absent: Tenderness - Extremities Exam Extremities Exam: absent: Pedal Edema - Neurological Exam Neurological Exam: Alert, Awake, Oriented x3 - Psychiatric Exam Psychiatric exam: Normal Affect, Normal Mood - Skin Skin Exam: Normal Color, Warm Assessment and Plan - Assessment and Plan (Free Text) Assessment: Frequent falls Head CT negative EKG NSR at 91bpm MRI August 2016 - normal Head CT August 2016 - possible meningioma Vitamin D 15.6 in August 2016 TSH, B12, Folate normal in August 2016 repeat MRI normal (please see full report) Carotid US negative for stenosis (please see full report) ECHO EF>70%, diastolic dysfunction and mild MR and TR (please see full report) Vitamin D 16.6 Vitamin B12 828 TSH 3.6 Folate 15.8 Hepatitis negative Neuro consult - Dr. Jernigan - help appreciated Gabapentin 100mg PO TID added per Dr. Jernigan Ergocalciferol 72044S PO Q7D PT recommends d/c home LLE weakness MRI normal (please see full report) Neuro consult - Dr. Jernigan Schizophrenia Psych consult - Dr. Jeffries - f/u recs Depakote 500mg PO BID Haldol 10mg PO TID Paxil 12.5mg PO daily Seroquel 50mg PO daily Stelazine 2mg PO TID DM Metformin 500mg PO BID Glimepiride 1mg PO daily [facility] Accuchecks Prophylaxis Lovenox 40mg SC daily Protonix 40mg PO daily
[2016-12-16] MEDS: TRIFLUOPERAZINE 1 MG PO SCH ×2 (11:49→15:00)
[2016-12-16] MEDS: Divalproex 500 mg ER Tab PO SCH (11:50)
[2016-12-16] MEDS: Pantoprazole 40 mg EC Tab PO SCH (11:51)
[2016-12-16] MEDS: Enoxaparin 40 mg Syringe SC SCH (11:51)
--- NOTE | 2016-12-16 15:17 | PCM.PYCHPN ---
Psychiatric Progress Note - Psychiatric Progress Note Patient seen today, length of contact: 16 min Patient Chief Complaint: 'I am falling too much and I am hearing voices.' Medical Problems: Past psychiatric history includes inpatient rehab for 6 months - 2 years ago in [facility], previous admissions ranging from 5-10 day hospital stays, and previous ECT treatments when she was not responding to medications. Medication Change: Yes (dc Clozapine) Medical Record Reviewed: Yes
--- NOTE | 2016-12-16 18:59 | VASCLAB ---
PROCEDURE: HISTORY: frequent falls COMPARISON: None available. TECHNIQUE: Grayscale and duplex Doppler evaluation of the cervical carotid and vertebral arteries were performed. The common carotid, carotid bifurcations and cervical Internal Carotid Artery (ICA) and proximal External Carotid Artery (ECA) were evaluated. The vertebral arteries were evaluated for gross patency and flow direction. Report prepared by Bhavesh Jaeger, BS, RVT FINDINGS: RIGHT CAROTID ARTERIES: 1. Common Carotid Artery: No significant focal plaque formation of the right common carotid artery. Maximum Peak Systolic velocity: 65 cm/sec: End-diastolic velocity 14 cm/sec. 2. Carotid Bifurcation: Homogeneous plaque formation. Maximum Peak Systolic velocity: 48 cm/sec: End-diastolic velocity 11 cm/sec. 3. Internal Carotid Artery: Minimal plaque formation of the right proximal ICA which does not result in hemodynamically significant stenosis. Plaque description: Homogeneous 3.1. Proximal Segment: Peak systolic velocity 73 cm/sec: End-diastolic velocity 27 cm/sec - % stenosis 0-15% 3.2. Middle Segment: Peak systolic velocity 103 cm/sec: End-diastolic velocity 30 cm/sec - % stenosis 0-15% 3.3. Distal Segment: Peak systolic velocity 108 cm/sec: End-diastolic velocity 27 cm/sec - % stenosis 0-15% 4. External Carotid Artery: No significant focal plaque formation. Peak systolic velocity 108 cm/sec 5. ICA/CCA Ratio: 1.6 LEFT CAROTID ARTERIES: 1. Common Carotid Artery: No significant focal plaque formation of the left common carotid artery. Maximum Peak Systolic velocity: 67 cm/sec: End-diastolic velocity 17 cm/sec. 2. Carotid Bifurcation: Homogeneous plaque formation. Maximum Peak Systolic velocity: 57 cm/sec: End-diastolic velocity 15 cm/sec. 3. Internal Carotid Artery: Minimal plaque formation of the left proximal ICA which does not result in hemodynamically significant stenosis. Plaque description: Heterogeneous 3.1. Proximal Segment: Peak systolic velocity 108 cm/sec: End-diastolic velocity 31 cm/sec - % stenosis 0-15% 3.2. Middle Segment: Peak systolic velocity 50 cm/sec: End-diastolic velocity 13 cm/sec - % stenosis 0-15% 3.3. Distal Segment: Peak systolic velocity 118 cm/sec: End-diastolic velocity 34 cm/sec - % stenosis 0-15% 4. External Carotid Artery: No significant focal plaque formation. Peak systolic velocity 120 cm/sec 5. ICA/CCA Ratio: 1.7 VERTEBRAL ARTERIES: 1. Right Vertebral Artery: The right vertebral artery flow direction is antegrade. 2. Left Vertebral Artery: The left vertebral artery flow direction is antegrade. OTHER FINDINGS: 1. Right Brachial Blood pressure: 156 mmHg. 2. Left Brachial Blood pressure: 154 mmHg. IMPRESSION: RIGHT: Duplex scan does not suggest hemodynamically significant stenosis of the right extracranial carotid arteries. LEFT: Duplex scan does not suggest hemodynamically significant stenosis of the left extracranial carotid arteries.
--- NOTE | 2016-12-17 08:56 | CARD ---
APPROVED REPORT EKG Measurement Heart [id number] <Conclusion> Normal sinus rhythm LOW VOLTAGE POSSIBLE Q IN V1
[2016-12-18 07:23] LABS: LYME DISEASE SCREEN <0.90 index
--- NOTE | 2016-12-23 09:33 | EEG ---
DATE: 12/15/2016 The record is obtained for a history of altered mental status, rule out seizures. The patient is kno wn to have a history of mental disorder and was said to have either schizophrenia or schizoaffective disorder. The record is obtained to rule out seizures and also to rule out encephalopathy. The [address] was symmetrically equal on both sides with a velocity of 6-7 cycles per second. The waves were sy mmetrically equal on both sides with a velocity of 6-7 cycles per second. The waves are fairly forme d, fairly organized with a posterior distribution, moderate in amplitude, reactive to eye opening by attenuation. There were no abnormal discharges. No spike, polyspike, no sharp wave, no focal slowin g, no paroxysmal discharge. The record did not show any change with photic stimulation. The hyperve ntilation was omitted. There were no periods of drowsiness. There were no periods of sleep. There were eye movement artifacts, electrode artifacts, and muscle movement artifacts. Photic stimulation did not produce any changes. SUMMARY: This is an abnormal record, significant for generalized slowing. This might be consistent w ith encephalopathy. Clinical correlation is recommended. Adry Jernigan MD cc: [id number] TT: 12/23/2016 07:59:23 Confirmation # [id number] Dictation # [id number]
== END 2016-12-16 16:30 | DRG 948 ==
LOC: C.ER 18:11 → C.9E 21:43 → C.5T 23:36
PROVIDERS: ADMIT Internal Medicine Nephrology; ATTEND Internal Medicine Nephrology
DX: R53.1 Weakness (principal); T43.505A Adverse effect of unspecified antipsychotics and neuroleptics, initial encounter; T38.3X5A Adverse effect of insulin and oral hypoglycemic [antidiabetic] drugs, initial encounter; R26.81 Unsteadiness on feet; F20.9 Schizophrenia, unspecified; I10 Essential (primary) hypertension; D32.9 Benign neoplasm of meninges, unspecified; H81.10 Benign paroxysmal vertigo, unspecified ear; E11.9 Type 2 diabetes mellitus without complications; I49.9 Cardiac arrhythmia, unspecified; Z87.440 Personal history of urinary (tract) infections; Z91.81 History of falling; Z79.84 Long term (current) use of oral hypoglycemic drugs